=== PATIENT | female | born 1965 | race Hispanic/Latino ===

== ENCOUNTER 2019-01-04 14:55 | Outpatient (CLI) | payer OTHER ==
--- NOTE | 2019-01-04 17:47 | ULT ---
PELVIC ULTRASOUND: 01/04/19 Ultrasonography of the pelvis was performed. Documentary images and worksheets were provided and revi ewed. The uterus is normal in appearance measuring 6.3 x 5.3 x 4.3 cm. No mass was seen. The endometrium is a normal 5 mm in thickness. The right ovary was 2.9 cm long. There is a 1.4 cm follicle within it. The left ovary is 3.3 cm long and there were several follicles around 1 cm in size or slightly larger. Blood flow is present in eac h ovary. There was no free fluid. IMPRESSION: 1. No acute pelvic findings. 2. Several generous sized follicles in each ovary. POS: HOME
== END 2019-01-04 14:56 | disposition home or self-care (01) ==
LOC: BURULT 14:55
PROVIDERS: ATTEND Family Medicine
DX: N95.1 Menopausal and female climacteric states (principal); N83.8 Other noninflammatory disorders of ovary, fallopian tube and broad ligament
CPT/HCPCS: 76856